=== PATIENT | male | born 1985 | race Caucasian/White ===

== ENCOUNTER 2023-12-22 16:38 | Outpatient (CLI) | payer OTHER, SELFPAY | END 2023-12-22 16:39 | disposition home or self-care (01) | PROVIDERS: PCP Family Medicine; Visit Provider Family Medicine | DX: I10 Essential (primary) hypertension (principal); E78.00 Pure hypercholesterolemia, unspecified; M79.18 Myalgia, other site; M25.59 Pain in other specified joint | CPT/HCPCS: 80053; 80061; 84443; 86140; 86617 ==

== ENCOUNTER 2024-10-02 07:47 | Outpatient (CLI) | payer OTHER, SELFPAY ==
[2024-10-02 15:23] LABS: Chlamydia DNA Amplified* NOT DETECTED (No Detected); GC DNA Amplified* NOT DETECTED (No Detected)
== END 2024-10-02 07:48 | disposition home or self-care (01) ==
PROVIDERS: PCP Family Medicine; Visit Provider Family Medicine
DX: R39.9 Unspecified symptoms and signs involving the genitourinary system (principal)
CPT/HCPCS: 87491; 87591

== ENCOUNTER 2025-03-29 16:16 | Outpatient (CLI) | payer OTHER, SELFPAY | END 2025-03-29 16:17 | disposition home or self-care (01) | LOC: NFLDREF 19:47 | PROVIDERS: PCP Family Medicine; Referring Provider Family Medicine; Visit Provider Family Medicine | DX: Z77.128 Contact with and (suspected) exposure to other hazards in the physical environment (principal) | CPT/HCPCS: 82375 ==